=== PATIENT | female | born 1970 | race Caucasian/White ===

== ENCOUNTER 2018-06-14 19:39 | Emergency (ER) | payer BC ==
[~2018-06-14] VITALS: Ht 162.6 cm; Wt 70.9 kg
[2018-06-14 20:02] VITALS: Ht 162.6 cm; Wt 70.9 kg
[2018-06-14] MEDS ORDERED: HYDROmorphONE 0.5 MG/0.5 ML SYG IM STA (23:04)
[2018-06-14] MEDS ORDERED: KETOROLAC 60 MG INJ IM STA (23:04)
--- NOTE | 2018-06-15 01:42 | ERD ---
ER Documentation Chief Complaint Chief Complaint L KNEE PAIN X'S 2 DAYS HPI History of Present Illness: Patient coming in today with complaint of left knee pain. Patient reports pain is been present for 2 days, denies injury, denies trauma. Patient reports going to [facility] yesterday was diagnosed with an effusion and Jose's cyst; information confirmed with discharge papers that patient was given. Patient reports chronic use of opiates for chronic back pain; reports that she was given prescription for Percocet during ER discharge, but medication is not helping with pain due to patient usually taking Percocet daily for her chronic back pain. Patient denies any systemic signs of infection including fever, chills, altered mental status. At home pharmacological/nonpharmacological treatment for symptoms: Percocet Denies social concerns; Denies recent foreign travel ROS All systems reviewed and are negative except as per history of present illness. Allergies Allergies: Coded Allergies: Penicillins (Verified Allergy, Unknown, 06/14/18) morphine (Verified Allergy, Unknown, 06/14/18) PMhx/Soc History of Surgery: Yes (KIDNEY STONE REMOVAL ) Hx Miscellaneous Medical Probl: Yes (KIDNEY STONES) Hx Alcohol Use: Yes (RARELY) Hx Substance Use: No Hx Tobacco Use: No Smoking Status: Never smoker FmHx Family History: No diabetes, No coronary disease Physical Exam Vitals Vital Signs Date Temp Pulse Resp B/P (MAP) Pulse Ox O2 O2 Flow FiO2 Time Delivery Rate 06/14/18 97.9 90 18 119/71 100 20:02 (87) Physical Exam Const: No acute distress Head: Atraumatic Eyes: Normal Conjunctiva ENT: Normal External Ears, Nose and Mouth. Neck: Full range of motion. No meningismus. Resp: Clear to auscultation bilaterally Cardio: Regular rate and rhythm, no murmurs Abd: Soft, non tender, non distended. Normal bowel sounds Skin: No petechiae or rashes Back: No midline or flank tenderness Ext: No cyanosis. Tenderness to palpation to left lateral knee, positive swelling, no erythema. Tenderness to palpation behind left knee. Patient grimacing with pain upon examination. Neur: Awake and alert Psych: Normal Mood and Affect Results 24 hrs Current Medications Medications Dose Sig/Jodee Start Time Status Last (Trade) Ordered Route PRN Stop Time Admin Dose Reason Admin Ketorolac 60 mg ONCE STAT 06/14/18 DC 06/14/18 Tromethamine IM 23:04 23:22 (Toradol) 06/14/18 23:07 0.5 mg ONCE STAT 06/14/18 DC 06/14/18 Hydromorphone IM 23:04 23:23 HCl 06/14/18 23:07 (Dilaudid) Procedures/MDM ED course includes a thorough examination and history. Medications: IM ketorolac for pain/inflammation; Dilaudid IM (patient educated that this will be a one-time dose of this medication, medication considered due to patient with chronic use of opiates and prescribed opiate is the same that she is currently taking for her chronic back pain) Low suspicion for life-threatening medical emergency. Otherwise healthy patient presenting with constellation of symptoms likely representing uncomplicated pain unrelieved with medication/knee pain as characterized by history, physical exam findings. No respiratory distress, otherwise relatively well appearing and nontoxic. Patient educated on diagnoses, prescriptions, follow-up care, return precautions. Strict return precautions given for worsening condition; questions answered discharge. Disposition for discharge with followup in 2 days with PCP/clinic --- Informed by nurse at 2345 that patient eloped before receiving discharge instructions. Departure Diagnosis: Primary Impression: Knee pain Chronicity: acute Laterality: left Qualified Codes: M25.562 - Pain in left knee Condition: Stable Patient Instructions: Pain Management Referrals: [facility] YOU HAVE RECEIVED A MEDICAL SCREENING EXAM AND THE RESULTS INDICATE THAT YOU DO NOT HAVE A CONDITION THAT REQUIRES URGENT TREATMENT IN THE EMERGENCY DEPARTMENT. FURTHER EVALUATION AND TREATMENT OF YOUR CONDITION CAN WAIT UNTIL YOU ARE SEEN IN YOUR DOCTORS OFFICE WITHIN THE NEXT 1-2 DAYS. IT IS YOUR RESPONSIBILITY TO MAKE AN APPOINTMENT FOR FOLOW-UP CARE. IF YOU HAVE A PRIMARY DOCTOR --you should call your primary doctor and schedule an appointment IF YOU DO NOT HAVE A PRIMARY DOCTOR YOU CAN CALL OUR PHYSICIAN REFERRAL HOTLINE AT IF YOU CAN NOT AFFORD TO SEE A PHYSICIAN YOU CAN CHOSE FROM THE FOLLOWING [facility] [address] [facility] [address] [facility] [address] [facility] [address]. [facility] [address] [facility]. [facility] [address] [facility]. [facility] YOU HAVE RECEIVED A MEDICAL SCREENING EXAM AND THE RESULTS INDICATE THAT YOU DO NOT HAVE A CONDITION THAT REQUIRES URGENT TREATMENT IN THE EMERGENCY DEPARTMENT. FURTHER EVALUATION AND TREATMENT OF YOUR CONDITION CAN WAIT UNTIL YOU ARE SEEN IN YOUR DOCTORS OFFICE WITHIN THE NEXT 1-2 DAYS. IT IS YOUR RESPONSIBILITY TO MAKE AN APPOINTMENT FOR FOLOW-UP CARE. IF YOU HAVE A PRIMARY DOCTOR --you should call your primary doctor and schedule and appointment IF YOU DO NOT HAVE A PRIMARY DOCTOR YOU CAN CALL OUR PHYSICIAN REFERRAL HOTLINE AT . IF YOU CAN NOT AFFORD TO SEE A PHYSICIAN YOU CAN CHOSE FROM THE FOLLOWING [facility]: [facility] [address] [place] [address] [facility] [address] [place], [place] [id number] [place] [address] [address] [place] [address] Additional Instructions: Continue Percocet as needed for pain. We will give you 1 dose of IM opiate medication during this ER visit, and no additional doses will be given. TANIA LUNA NP Jun 15, 2018 01:42
== END 2018-06-15 02:28 | disposition left against medical advice (07) ==
LOC: FTE 19:39
DX: M25.562 Pain in left knee (principal)
CPT/HCPCS: 96372; J1170; J1885; Z7502